=== PATIENT | female | born 1980 | race Caucasian/White ===

== ENCOUNTER → 2017-02-14 | Outpatient (CLI) | payer BC | LOC: FIMAGING 13:29 | PROVIDERS: ATTEND Obstetrics & Gynecology | DX: O09.522 Supervision of elderly multigravida, second trimester (principal); I83.91 Asymptomatic varicose veins of right lower extremity; Z3A.13 13 weeks gestation of pregnancy ==

== ENCOUNTER → 2017-03-28 | Outpatient (CLI) | payer BC | LOC: FIMAGING 13:30 | PROVIDERS: ATTEND Obstetrics & Gynecology | DX: O09.522 Supervision of elderly multigravida, second trimester (principal); Z3A.19 19 weeks gestation of pregnancy ==

== ENCOUNTER 2017-08-10 06:32 | Observation (INO) | payer OTHER ==
--- NOTE | 2017-08-05 14:55 | GHP ---
[f rep st] PREOP HISTORY AND PHYSICAL PLANNED PROCEDURE: Primary low transverse section for breech presentation. INDICATIONS: Patient is a 37-year-old, 3, para 1-0-1-1, who will be 39 weeks' gestation, whose baby is known to be in the breech presentation. She was offered an external cephalic version and initially has declined this. She still back on the fence and is considering doing external cephalic version. We have had long discussions about a primary low transverse section versus attempting external cephalic version. Risks and benefits of both, and the patient has been consented for , and will let us know if she wants to try version prior to the section. Risks and benefits of both been extensively reviewed with the patient and patient has been properly consented. MEDICAL HISTORY: Ulcerative colitis, she has been in remission for 6 years. Borderline low platelets. Leg and pelvic varicose veins. MEDICATIONS: vitamins and iron. She is also on Lialda and cod liver oil. SURGICAL HISTORY: Dilation and curettage, colonoscopy. ALLERGIES: No known drug allergies. The patient is sensitive to NSAIDs. 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 She is . She lives with her and their other child. She denies tobacco, alcohol, or drug use. FAMILY MEDICAL HISTORY: Noncontributory. 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 She is a 3, para 1-0-1-1. In 03/2014, she had a spontaneous vaginal delivery of a 7 pounds 11 ounce female infant. At 39 and 4/7th weeks' gestation , she had spontaneous rupture of membranes and a rapid labor. Delivery was complicated by hemorrhage, the was uncomplicated. In 2015, she had a missed for which she had a dilation and curettage. Current has been uncomplicated. She initiated care at [facility] and transferred to us at 26 weeks. The patient denies any history of any abnormal Pap smears or sexually transmitted diseases. REVIEW OF SYSTEMS: A 10-point review of systems is negative with the exception of the above-mentioned pertinent positives. She states there is good movement. Denies any loss of fluid or vaginal bleeding. Denies any headache, changes in vision, nausea, vomiting, fevers, or chills. PHYSICAL EXAM: VITAL SIGNS: Stable. GENERAL APPEARANCE: Alert and in no acute distress. PSYCH: She has appropriate affect, and alert and oriented x3. NECK: Mobile and supple. MUSCULOSKELETAL: General, intact. NEUROLOGIC: General, intact. HEART: Rate is irregularly irregular. LUNGS: Clear to auscultation bilaterally. ABDOMEN: Gravid, nondistended, nontender. No other organomegaly is noted. EXTREMITIES: Reveal no calf tenderness or edema. She does have pelvic and leg varicosities, right greater than left. PELVIC: Deferred, is in a breech presentation. LABORATORY DATA: The patient's labs: Blood type B positive, antibody screen negative. Rubella immune. GBS negative. HBsAg negative. HIV negative. Her 50 g glucose was 85. Her platelets at her new OB visit were 147. She had repeat platelets that were 133, at 35 weeks, and most recent platelets are pending. ASSESSMENT AND PLAN: 1. A 37-year-old 1, para 1-0-0-1, who will be 39 weeks' gestation with baby known to be in breech presentation. She is considering an external cephalic version, and if she does not, she will undergo a primary low transverse section. The risks and benefits were extensively reviewed with the patient, and patient was properly consented. 2. Ulcerative colitis. Patient has been in remission for 6 years. She will check with her GI doctor to find out if she can have Toradol. 3. History of hemorrhage. 4. Platelets low at 32 weeks. We will check before surgery. /[id number]/MODL MTDD
[2017-08-10] MEDS ORDERED: TERBUTALINE SULFATE 1 MG/ML VIAL IV ONE (06:50)
[2017-08-10 07:29] LABS: % IMMATURE GRANULYOCYTES 0.7 % (0.0-1.1); ABSOLUTE IMMATURE GRANULOCYTES 0.04 10^3/uL (0.00-0.10); ADD DIFF? NO; ADD MORPH? NO; ADD SCAN? NO; ATYPICAL LYMPHOCYTE FLAG 0 (0-99); FRAGMENT RBC FLAG 0 (0-99); HEMOGLOBIN 12.8 g/dL (12.6-16.3); LEFT SHIFT FLG 0 (0-99); LIPEMIA HEMOLYSIS FLAG 90 (0-99); MEAN CELL HEMOGLOBIN 30.4 pg (27.9-34.1); MEAN CELL HEMOGLOBIN CONCENTR. 34.6 g/dL (32.4-36.7); MEAN CELL VOLUME 87.9 fL (81.5-99.8); PLATELET CLUMPS FLAG 0 (0-99); PLATELET COUNT 125 10^3/uL (150-400); RED BLOOD CELL COUNT 4.21 10^6/uL (4.18-5.33); RED CELL DISTRIBUTION WIDTH 13.1 % (11.5-15.2)
[2017-08-10] MEDS ORDERED: LR 1,000 ML IV SCH (07:30)
[2017-08-10] MEDS ORDERED: OLIVE OIL 118 ML BTL MISC ONE (07:45)
--- NOTE | 2017-08-11 06:33 | GOP ---
[f rep st] OPERATIVE REPORT DATE OF OPERATION: 08/10/2017 SURGEON: Kathy Keating DO PREOPERATIVE DIAGNOSIS: Breech presentation of a 37-year-old 2, para 1-0-0-1 at 37+ weeks' g estation. POSTOPERATIVE DIAGNOSIS: PROCEDURE PERFORMED: She presented today for external cephalic version. She has been properly conse nted and is aware that if this fails, she will need to undergo a primary low transverse sect ion and the risks of the procedure. FINDINGS: INDICATIONS: Patient is a 37-year-old 2, para 1-0-0-1 at 37+ weeks' gestation. She has a ba by who is known to be in the breech presentation. DESCRIPTION OF PROCEDURE: Ultrasound confirmed that the baby was in the breech presentation. heart tracings were reassuring. She was given 0.25 mg of terbutaline intravenously and seed oil was applied to her abdomen. We had tried multiple forward and backward rolls, but were not able to flip the baby to a vertex presentation. Patient tolerated the procedure well. Fetus tolerated the proced ure well. Patient was monitored for an hour after the procedure, status remained reassuring, a nd she was discharged to home. Patient was given labor precautions and kick counts and instructed to call as soon as possible if she kicked into labor, as she has a history of rapid labor and will need a section. Patient is to follow up in our office next week. /[id number]/MODL
== END 2017-08-10 10:07 | disposition home or self-care (01) ==
LOC: FLD 06:32
PROVIDERS: ADMIT Obstetrics & Gynecology; ATTEND Obstetrics & Gynecology
PROC: 10S0XZZ Reposition Products of Conception, External Approach (ICD-10-PCS; principal; 2017-08-10)
DX: O32.1XX0 Maternal care for breech presentation, not applicable or unspecified (principal); O09.523 Supervision of elderly multigravida, third trimester; O22.03 Varicose veins of lower extremity in pregnancy, third trimester; O99.613 Diseases of the digestive system complicating pregnancy, third trimester; K51.90 Ulcerative colitis, unspecified, without complications; Z3A.39 39 weeks gestation of pregnancy
CPT/HCPCS: J3105

== ENCOUNTER 2017-08-12 06:20 | Inpatient (IN) | payer OTHER ==
[2017-08-12] MEDS ORDERED: LR 500 ML IV ONE (06:41)
[2017-08-12] MEDS ORDERED: ceFAZolin 2 GM/DEXTROSE 100 ML IV ONE (06:41)
[2017-08-12] MEDS ORDERED: LR 1,000 ML IV SCH (07:00)
[2017-08-12] MEDS ORDERED: CITRIC ACID/SODIUM CITRATE 30 ML UDCUP ONE (07:02)
[2017-08-12] MEDS ORDERED: LIDOCAINE 1% 300 MG/30 ML SDV ONE (07:29)
[2017-08-12] MEDS ORDERED: MISOPROSTOL 200 MCG TAB ONE (07:30)
[2017-08-12] MEDS ORDERED: HEMABATE 250 MCG/1 ML AMP IM ONE (07:31)
[2017-08-12] MEDS ORDERED: METHYLERGONOVINE MAL 0.2 MG/ML INJ ONE (07:31)
--- NOTE | 2017-08-12 07:53 | OBPROG ---
Labor Progress Note Assessment/Plan: Assessment: cat 1 fhr pain well managed srom clear fluid irregular contractions discussed r/b/a/ section process Plan:primary section for breech 08/12/17 07:48 Subjective/Intrapartum Course: 08/12/17 07:46 Patient came in with complaint of srom at 0600. Feeling irregular contractions. States feeling + movement - Contraction Pattern Assessment Current Contraction Pattern: Regular - FHR Assessment Mccarthy FHR (bpm): 135 FHR Pattern Variability: Moderate FHR Category: 1 - AP Antepartum Course: 08/12/17 07:53 37 yo ga 38.4 previously [facility] patient transfer of care. History of ulcerative colitis on lialda bid for uc. AMA. Previous vaginal delivery with hemorrage. 2nd degree. No difficulties with the itself other than breech with a failed version. - Physical Exam General Appearance: WD/WN, alert, no apparent distress Respiratory: chest non-tender, lungs clear, normal breath sounds Cardiac/Chest: regular rate, rhythm Abdomen: normal bowel sounds Extremities: Corky's sign (negative bilaterally) DTR- Lower Extremities: Knee (R): 1+, Knee (L): 1+ (no clonus) Skin: normal color, warm/dry Neuro/Psych: no motor/sensory deficits, alert, normal mood/affect, oriented x 3 Oxytocin Orders Assessment - Pre-Induction/Augmentation Assessment Gestational Age: 38 week(s) and 4 day(s) ICD10 Worksheet Patient Problems: Problems Problem Status Onset Spontaneous vaginal delivery Acute
[2017-08-12] MEDS ORDERED: EPSOM SALT 454 GM TP PRN (08:12)
[2017-08-12] MEDS ORDERED: LR 1,000 ML IV PRN (08:12)
[2017-08-12] MEDS ORDERED: TERBUTALINE SULFATE 1 MG/ML VIAL IV PRN (08:12)
[2017-08-12] MEDS ORDERED: OLIVE OIL 118 ML BTL MISC PRN (08:12)
[2017-08-12] MEDS ORDERED: OXYTOCIN/RINGERS LACTATE 1,000 ML IV PRN (08:12)
[2017-08-12 08:14] LABS: % IMMATURE GRANULYOCYTES 0.5 % (0.0-1.1); ABSOLUTE IMMATURE GRANULOCYTES 0.03 10^3/uL (0.00-0.10); ADD DIFF? NO; ADD MORPH? NO; ADD SCAN? NO; ATYPICAL LYMPHOCYTE FLAG 30 (0-99); FRAGMENT RBC FLAG 0 (0-99); HEMATOCRIT 37.7 % (38.0-47.0); HEMOGLOBIN 12.8 g/dL (12.6-16.3); LEFT SHIFT FLG 0 (0-99); LIPEMIA HEMOLYSIS FLAG 90 (0-99); MEAN CELL HEMOGLOBIN 30.4 pg (27.9-34.1); MEAN CELL VOLUME 89.5 fL (81.5-99.8); MEAN PLATELET VOLUME 11.8 fL (8.7-11.7); PLATELET CLUMPS FLAG 0 (0-99); PLATELET COUNT 123 10^3/uL (150-400); RED BLOOD CELL COUNT 4.21 10^6/uL (4.18-5.33)
[2017-08-12] MEDS ORDERED: ONDANSETRON 4 MG/2 ML VIAL ONE (08:21)
--- NOTE | 2017-08-12 08:21 | PDANEPAE ---
ANE History of Present Illness c/s for breech, rupture of membranes ANE Past Medical History - Pulmonary History Hx Oxygen in Use at Home: No Hx Sleep Apnea: No - Endocrine History Hx Diabetes: No - GI History Gastrointestinal History Comment: UC - Chronic Pain History Chronic Pain: No ANE Review of Systems Review of Systems: - Exercise capacity Exercise capacity: >=4 METS ANE Patient History - Allergies Allergies/Adverse Reactions: No Known Allergies Allergy (Unverified 04/03/14 17:49) - Home Medications Home medications: home medication list seen and reviewed Home Medications: Docosahexanoic Acid [DHA ] PO DAILY 04/03/14 [Last Taken 04/03/14] Mesalamine [Lialda] 4 tab PO DAILY 04/03/14 [Last Taken 08/11/17 21:00] Vit27&Calcium/Iron/FA [] PO DAILY 04/03/14 [Last Taken 08/11/17 ] - NPO status NPO Status: no food or drink >8 hours - Anes Hx Anes Hx: no prior problems - Smoking Hx Smoking Status: Never smoked - Family Anes Hx Family Anes Hx: none ANE Labs/Vital Signs - Labs Result Diagrams: 08/12/17 07:55 - Vital Signs Height: 180.34 cm Weight: 74.389 kg ANE Physical Exam - Airway Neck exam: FROM Mallampati Score: Class 2 Mouth exam: normal dental/mouth exam - Pulmonary Pulmonary: no respiratory distress - Cardiovascular Cardiovascular: regular rate and rhythym ANE Anesthesia Plan Anesthesia Plan: spinal
[2017-08-12] MEDS ORDERED: OXYTOCIN 100 UNITS/10 ML VIAL ONE (08:22)
[2017-08-12] MEDS ORDERED: OXYTOCIN 20 UNIT in LR 1,000 ML IV SCH (08:30)
[2017-08-12] MEDS ORDERED: fentaNYL 100 MCG/2 ML INJ IVP PRN (09:02)
[2017-08-12] MEDS ORDERED: HYDROCODONE/APAP 5/325 TAB PO PRN (09:02)
[2017-08-12] MEDS ORDERED: OXYCODONE/APAP 5/325 TAB PO PRN (09:02)
[2017-08-12] MEDS ORDERED: ONDANSETRON 4 MG/2 ML VIAL IVP PRN (09:02)
[2017-08-12] MEDS ORDERED: PHENYLEPHRINE HCL 100 MCG/ML SYR IVP PRN (09:02)
[2017-08-12] MEDS ORDERED: NALOXONE HCL 0.4 MG/ML INJ IVP PRN (09:02)
[2017-08-12] MEDS ORDERED: HYDROmorphONE/DILAUDID 1 MG/ML INJ IVP PRN (09:02)
[2017-08-12] MEDS ORDERED: MEPERIDINE 25 MG/ML SYR IVP PRN (09:02)
--- NOTE | 2017-08-12 09:02 | POSTANESTH ---
Post Anesthetic Evaluation Cardiovascular Status: Normal, Stable, Similar to Pre-Op Cond Respiratory Status: Normal, Stable, Similar to Pre-op Cond. Level of Consciousness/Mental Status: Can Participate in Eval, Alert and Oriented Pain Control: Adequate, Prn Tx Ordered Nausea/Vomiting Control: Adequate, Prn Tx Ordered Complications Possibly Related to Anesthesia: None Noted
[2017-08-12] MEDS ORDERED: DEXAMETHASONE 4 MG/ML VIAL ONE (09:51)
[2017-08-12] MEDS ORDERED: BISACODYL 10 MG SUPP PR PRN (10:50)
[2017-08-12] MEDS ORDERED: POLYETHYLENE GLYCOL 3350 17 GM PKT PO PRN (10:50)
[2017-08-12] MEDS ORDERED: LACTULOSE 20 GM/30 ML UDCUP PO PRN (10:50)
[2017-08-12] MEDS ORDERED: MAGNESIUM HYDROXIDE 30 ML UDCUP PO PRN (10:50)
--- NOTE | 2017-08-12 10:54 | OBDEL ---
Info Type: Primary Presentation at Delivery: Breech L&D Analgesia/Anesthesia Type: Spinal (with duramorph) GBS+: No Intrapartum Medications: Discontinued Medications Generic Name Dose Route Start Last Admin Trade Name Mich PRN Reason Stop Dose Admin Cefazolin Sodium/Dextrose 100 mls @ 200 mls/hr 08/12/17 06:41 08/12/17 07:23 Ancef 2 Gm (Premix) IV 08/12/17 07:10 100 mls ONCALL ONE Administration Protocol Lactated Ringer's 500 mls @ 0 mls/hr 08/12/17 06:41 08/12/17 07:24 Lr IV 08/12/17 06:42 500 mls ONCE ONE Administration As Directed - Care Provider Mortgage Loan Computation Clerk/COOK COLD MEAT: Joaquina Petty - Hospital Course Intrapartum: 08/12/17 07:46 Patient came in with complaint of srom at 0600. Feeling irregular contractions. States feeling + movement Indications for Delivery: SROM (and breech, failed ECV attempt this week) Vaginal Delivery - Labor and Delivery Onset of Contractions Date: 08/12/17 Onset of Contractions Time: 06:15 Operative Report - Delivery Pre-op Diagnoses: IUP at 38w4d, breech, SROM, undesired fertility Post-op Diagnoses: same, delivered and sterilized History of Prior Section: No Number of Prior Sections: 0 Nulliparous Prior to Delivery: No Indications for Current Section: Breech, Other (Specify) (SROM) Procedure: Unscheduled, Low Transverse, Other (Specify) (bilateral salpingectomies) Surgeon: Saar Corcoran Integrity Specialist: Keesha Ricci ([facility]) Anesthesiologist: Etienne Munoz Complications: None Findings: normal uterus, tubes and ovaries. Good tone of uterus after delivery. very vascular CHARLENE. Small hematoma on left angle of incision that was not extending at end of procedure. Double layer closure with 0-vicryl. No extensions of incision. Double ftl breech delivery, uncomplicated. Gases obtained. clear fluid. no NC. Easy identification of vessels in mesosalpinx. All isolated and tied off with 0-vicryl Tubal sites inspected after uterus return to abdomen and all hemostatic. Good UOP and clear Specimen(s)/Path: Fallopian Tube(s) IV Fluid (ml): 2,200 EBL: 1000 Bryan Data Mccarthy Delivery Date: 08/12/17 Delivery Time: 09:08 VALERIA: 08/22/17 Gestational Age: 38 week(s) and 4 day(s) Sex of Infant: Female Score (1 Min): 8 Score (5 Min): 8 ICD10 Worksheet Patient Problems: Problems Problem Status Onset Breech presentation Acute S/P primary low transverse Acute SROM (spontaneous rupture of membranes) Acute Status post bilateral salpingectomy Acute
[2017-08-12 12:07] LABS: CORD BLOOD PCO2 67.7 mmHg (37-60); PH ARTERIAL CORD BLOOD 7.1 (7.10-7.37)
[2017-08-12 12:08] LABS: BASE EXCESS CORD -11.3 mEq/L (-13.6--3.2); PH VENOUS CORD BLOOD 7.23 (7.20-7.42)
--- NOTE | 2017-08-12 19:19 | OBPP ---
Progress Note Assessment/Plan: Assessment: POD 1/2 s/p RCS, BS for breech, SROM UC on lialda Plan: Routine care, hct in am 08/12/17 19:14 Subjective/ Course: 08/12/17 19:16 Pt doing well except waves of nausea. Pain doing well currently with duramorph only. has declined Toradol. Only donald some water. Baby has been latching Objective: 08/12/17 07:55 Patient ABO/Rh B POSITIVE 08/12/17 07:55 Temp Pulse Resp BP Pulse Ox 36.3 C 63 20 86/54 L 95 08/12/17 15:30 08/12/17 17:35 08/12/17 17:35 08/12/17 15:30 08/12/17 17:35 Uterine Position/Fundal Height: At Umbilicus Uterine Tone: Firm Physical Exam - Physical Exam Abdomen: non-tender (approp post op tenderness), soft, other (bandage CDI) Extremities: non-tender, pedal edema (minimal) Skin: normal color, warm/dry Neuro/Psych: alert, normal mood/affect
[2017-08-12] MEDS: KETOROLAC 30 MG/1 ML SDV IVP SCH ×2 (19:21→19:27)
[2017-08-12] MEDS ORDERED: MESALAMINE PO SCH (21:00)
[2017-08-12] MEDS: MESALAMINE PO SCH (21:17)
[2017-08-12] MEDS: SENNOSIDES/DOCUSATE SODIUM TAB PO SCH (22:14)
[2017-08-13] MEDS: KETOROLAC 30 MG/1 ML SDV IVP SCH ×6 (00:03→19:29)
[2017-08-13] MEDS: MESALAMINE PO SCH ×2 (10:23→20:07)
--- NOTE | 2017-08-13 13:52 | OBPP ---
Progress Note Assessment/Plan: Assessment: POD 1 s/p RCS, BS for breech, SROM UC on lialda Plan: Routine care, mild anemia - begin iron 08/12/17 19:14 08/13/17 13:49 Subjective/ Course: 08/12/17 19:16 Pt doing well except waves of nausea. Pain doing well currently with duramorph only. has declined Toradol. Only donald some water. Baby has been latching 08/13/17 13:49 Doing well. Has had 2 doses toradol and donald fine. Pain is well controlled and ambulating fine. Urinated without probs. bleeding is light. Baby is latching well. Nausea abated last noc and donald reg diet. Disc pain meds available Objective: 08/13/17 01:30 Patient ABO/Rh B POSITIVE 08/12/17 07:55 Temp Pulse Resp BP Pulse Ox 36.8 C 72 18 80/51 L 92 08/13/17 11:48 08/13/17 11:48 08/13/17 11:48 08/13/17 11:48 08/13/17 11:48 Uterine Position/Fundal Height: Umbilicus -1 Uterine Tone: Firm Physical Exam - Physical Exam Abdomen: non-tender (approp post op tenderness), soft, other (bandage CDI, FF at umb -1) Extremities: non-tender, pedal edema (minimal) Skin: normal color, warm/dry Neuro/Psych: alert, normal mood/affect
[2017-08-13] MEDS: IRON POLYSAC/IRON HEME 28 MG TAB PO SCH (14:06)
[2017-08-13] MEDS: SENNOSIDES/DOCUSATE SODIUM TAB PO SCH ×2 (14:08→22:00)
[2017-08-14] MEDS: ACETAMINOPHEN 325 MG TAB PO PRN ×3 (00:47→11:39)
[2017-08-14 01:09] VITALS: RESP 16
[2017-08-14] MEDS: IRON POLYSAC/IRON HEME 28 MG TAB PO SCH (09:41)
[2017-08-14] MEDS: SENNOSIDES/DOCUSATE SODIUM TAB PO SCH ×2 (09:42→21:36)
--- NOTE | 2017-08-14 10:27 | OBPP ---
Progress Note Assessment/Plan: Assessment: pod# 2 s/p PLTCS for breech / SROM in labor breast feeding anemia hx ulcerative colitis Plan: routine post care 08/14/17 10:24 Subjective/ Course: 08/12/17 19:16 Pt doing well except waves of nausea. Pain doing well currently with duramorph only. has declined Toradol. Only donald some water. Baby has been latching 08/13/17 13:49 Doing well. Has had 2 doses toradol and donald fine. Pain is well controlled and ambulating fine. Urinated without probs. bleeding is light. Baby is latching well. Nausea abated last noc and donald reg diet. Disc pain meds available 08/14/17 10:25 patient is doing well. pain is overall controlled. not taking ibuprofen due to hx ulcerative colitis. taking tylenol. pain not optimally controlled but hesitant to take narcotics. passing gas. no bowel movement yet. voiding without difficulty. denies headache and changes in vision. ambulating. breast feeding is going well. Objective: 08/13/17 01:30 Patient ABO/Rh B POSITIVE 08/12/17 07:55 Temp Pulse Resp BP Pulse Ox 37.0 C 62 16 95/64 L 94 08/14/17 00:50 08/14/17 00:50 08/14/17 00:50 08/14/17 00:50 08/14/17 00:50 Uterine Position/Fundal Height: Umbilicus -3 Uterine Tone: Firm Physical Exam - Physical Exam Neck: non-tender, full range of motion Respiratory: chest non-tender, lungs clear, normal breath sounds Cardiac/Chest: normal peripheral pulses, regular rate, rhythm Abdomen: normal bowel sounds, non-tender Extremities: normal range of motion, non-tender, normal inspection, normal capillary refill Skin: normal color, warm/dry, other (incision clean dry and intact) Neuro/Psych: no motor/sensory deficits, alert, normal mood/affect, oriented x 3
[2017-08-14] MEDS: HYDROCODONE/APAP 5/325 TAB PO PRN (20:38)
[2017-08-15] MEDS: HYDROCODONE/APAP 5/325 TAB PO PRN ×2 (04:12→11:19)
--- NOTE | 2017-08-15 08:58 | OBGCSDC ---
General Delivery Information - General Info : 3 Para: 2 Abortions: 1 Type: Primary L&D Analgesia/Anesthesia Type: Spinal Admission Date: 08/12/17 Labs: Patient ABO/Rh B POSITIVE 08/12/17 07:55 Hct 34.8 % (38.0-47.0) L 08/13/17 01:30 - Hospital Course Antepartum: 08/12/17 07:53 37 yo ga 38.4 previously [facility] patient transfer of care. History of ulcerative colitis on lialda bid for uc. AMA. Previous vaginal delivery with hemorrage. 2nd degree. No difficulties with the itself other than breech with a failed version. Intrapartum: 08/12/17 07:46 Patient came in with complaint of srom at 0600. Feeling irregular contractions. States feeling + movement : 08/12/17 19:16 Pt doing well except waves of nausea. Pain doing well currently with duramorph only. has declined Toradol. Only donald some water. Baby has been latching 08/13/17 13:49 Doing well. Has had 2 doses toradol and donald fine. Pain is well controlled and ambulating fine. Urinated without probs. bleeding is light. Baby is latching well. Nausea abated last noc and donald reg diet. Disc pain meds available 08/14/17 10:25 patient is doing well. pain is overall controlled. not taking ibuprofen due to hx ulcerative colitis. taking tylenol. pain not optimally controlled but hesitant to take narcotics. passing gas. no bowel movement yet. voiding without difficulty. denies headache and changes in vision. ambulating. breast feeding is going well. 08/15/17 08:52 SUBJ: Marry reports better pain control overnight after agreeing to starting narcotic pain meds ([place]). She denies significant lochia. She is ambulating and passing flatus. She is with reported fast let-down. She desires DC home today if possible. OBJ: VSS Gen: NAD HENT: atraumatic, normocephalic Lungs: clear, no wheezes Heart: RRR, no murmurs Abdomen: soft, non-distended, C/D/I Extremities: no excessive edema A/P: 37 yo A1 WF POD#3 s/p 1CD for breech presentation. Patient presented on 08/12 with SROM. CD was performed and VFI delivered. Patient has done well in PP. Plan is to DC home today. Patient has PMHx c/b UC and prefers to limit NSAIDs and narcotics if possible. - Delivery Providers Surgeon: Sara Corcoran Piper Installer: Keesha Ricci ([facility]) Anesthesiologist: Etienne Munoz - Delivery Number of Prior Sections: 0 Indications for Current Section: Breech, Other (Specify) (SROM) Surgical Procedures: Unscheduled, Low Transverse, Other (Specify) (bilateral salpingectomies) Intra-op Complications: None EBL: 1000 Data Mccarthy Delivery Date: 08/12/17 Delivery Time: 09:08 VALERIA: 08/22/17 Gestational Age: 39 week(s) and 0 day(s) Sex of : Female Weight (gm): 3144 g Score (1 Min): 8 Score (5 Min): 8 Discharge Information - Discharge Information Prescriptions: Acetaminophen [Tylenol 325mg (*)] 325 - 650 mg PO Q3HRS PRN #40 tab PRN Reason: Pain, Mild Hydrocodone/APAP 5/325 [[place] 5/325 (*)] 1 - 2 tab PO Q4HRS PRN #30 tab PRN Reason: Pain, Moderate Condition: Good Instruction/Follow Up: Two Weeks, Four Weeks, Six Weeks
[2017-08-15 09:45] VITALS: BP 93/60; PULSE 63; TEMP 97.9; O2SAT 94
[2017-08-15] MEDS: SENNOSIDES/DOCUSATE SODIUM TAB PO SCH (11:17)
[2017-08-15] MEDS: IRON POLYSAC/IRON HEME 28 MG TAB PO SCH (11:17)
== END 2017-08-15 14:00 | disposition home or self-care (01) | DRG 765 ==
LOC: FLD 06:20 → FOB 12:22
PROVIDERS: ADMIT Advanced Practice Midwife; ATTEND Obstetrics & Gynecology Gynecology
PROC: 10D00Z1 Extraction of Products of Conception, Low, Open Approach (ICD-10-PCS; principal; 2017-08-12)
PROC: 0UT70ZZ Resection of Bilateral Fallopian Tubes, Open Approach (ICD-10-PCS; principal; 2017-08-12)
DX: O32.1XX0 Maternal care for breech presentation, not applicable or unspecified (principal); O42.02 Full-term premature rupture of membranes, onset of labor within 24 hours of rupture; O09.523 Supervision of elderly multigravida, third trimester; O22.03 Varicose veins of lower extremity in pregnancy, third trimester; O99.613 Diseases of the digestive system complicating pregnancy, third trimester; K51.90 Ulcerative colitis, unspecified, without complications; O99.013 Anemia complicating pregnancy, third trimester; D64.9 Anemia, unspecified; Z30.2 Encounter for sterilization; Z67.20 Type B blood, Rh positive; Z3A.38 38 weeks gestation of pregnancy; Z37.0 Single live birth
CPT/HCPCS: J0690; J1100; J1885; J2210; J2405; J2590